=== PATIENT | male | born 1955 | race Caucasian/White ===

== ENCOUNTER 2017-03-26 13:12 | Outpatient (CLI) | payer OTHER ==
--- NOTE | 2017-03-26 19:00 | PET ---
PET CT FROM THE VERTEX OF THE SKULL THROUGH THE MID THIGHS 03/26/17 INDICATION: History of squamous cell carcinoma of the larynx. RADIOPHARMACEUTICAL: 16.4 millicuries F18 FDG IV. TECHNIQUE: PET CT images were obtained from the vertex of the skull through the level of the mid thighs followi ng administration of 16.4 millicuries of F18 FD[address] IV[address] CT images were obtained for attenuation correct ion purposes only. Comparisons are made with the CT of the soft tissues of the neck dated 03/06/[address] of the chest dated 03/15/17. FINDINGS: The biodistribution for the examination appears acceptable. HEAD AND NECK: The right sided polypoid soft tissue mass within the posterior right aspect of the hypopharynx demon strates elevated FDG uptake with a maximum SUV value of 7.3 and maria isabel value of 4.34. There is a right level IIa lymph node that measures 1 cm with a maximum uptake of 2.84, mean value o f 2.42. No additional hypermetabolic lymphadenopathy or soft tissue masses identified. The other mil dly prominently lymph node seen along the right aspect of the neck on the comparison CT examination may be below PET resolution threshold. CHEST: No hypermetabolic pulmonary nodule or pleural effusion is evident. No hypermetabolic lymphadenopathy is evident. ABDOMEN AND PELVIS: No hypermetabolic lymphadenopathy, soft tissue mass or ascites is present. SKIN AND OSSEOUS STRUCTURES: No hypermetabolic skin or osseous lesion is evident. IMPRESSION: Abnormal PET CT. 1. There is a hypermetabolic soft tissue polypoid mass seen within the right posterior aspect o f the hypopharynx likely corresponding to patient's known biopsy proven malignancy. 2. The prominent right level IIa lymph node measuring up to 1 cm on today's PET CT evaluation d oes demonstrate mild hypermetabolic uptake measuring up to 2.84 suspcious for malignant lymphadenopa thy. The additional mildly prominent lymph node seen within the right aspect of neck on the comparis on CT examination may be below PET resolution threshold. 3. No evidence of hypermetabolic metastatic disease of the chest, abdomen, pelvis, and skin and osseous structures. POS: [facility]
== END 2017-03-26 13:13 | disposition home or self-care (01) ==
LOC: PET 13:12
PROVIDERS: ATTEND Internal Medicine Medical Oncology
DX: C32.1 Malignant neoplasm of supraglottis (principal)
CPT/HCPCS: 78815; A9552

== ENCOUNTER 2017-04-15 11:24 | Day surgery (SDC) | payer OTHER ==
[2017-04-15 11:53] VITALS: BP 160/82; TEMP 98
[2017-04-15] MEDS ORDERED: CETUXIMAB IVPB SCH (12:00)
[2017-04-15] MEDS ORDERED: diphenhydrAMINE 50 MG in Sodium Chloride 0.9% 50 ML IVPB SCH (12:00)
== END 2017-04-15 14:45 | disposition home or self-care (01) ==
LOC: ONC/OP 11:24
PROVIDERS: ATTEND Internal Medicine Medical Oncology
DX: Z51.11 Encounter for antineoplastic chemotherapy (principal); C32.1 Malignant neoplasm of supraglottis; E78.5 Hyperlipidemia, unspecified; I12.9 Hypertensive chronic kidney disease with stage 1 through stage 4 chronic kidney disease, or unspecified chronic kidney disease; N18.4 Chronic kidney disease, stage 4 (severe); K21.9 Gastro-esophageal reflux disease without esophagitis; Z79.51 Long term (current) use of inhaled steroids; Z79.899 Other long term (current) drug therapy; Z90.89 Acquired absence of other organs; Z98.890 Other specified postprocedural states; Z87.891 Personal history of nicotine dependence; Z87.19 Personal history of other diseases of the digestive system
CPT/HCPCS: 96367; 96413; 96415; J1200; J7050; J9055

== ENCOUNTER 2017-04-29 11:26 | Day surgery (SDC) | payer OTHER ==
[2017-04-29] MEDS ORDERED: Sodium Chloride 0.9% 20 ML ONE (11:33)
[2017-04-29 11:42] VITALS: BP 144/72; TEMP 98.3
[2017-04-29] MEDS ORDERED: diphenhydrAMINE 25 MG in Sodium Chloride 0.9% 50 ML IVPB SCH (11:45)
[2017-04-29] MEDS ORDERED: CETUXIMAB IVPB SCH (11:45)
== END 2017-04-29 16:07 | disposition home or self-care (01) ==
LOC: ONC/OP 11:26
PROVIDERS: ATTEND Internal Medicine Medical Oncology
DX: Z51.11 Encounter for antineoplastic chemotherapy (principal); C32.1 Malignant neoplasm of supraglottis; E78.5 Hyperlipidemia, unspecified; K21.9 Gastro-esophageal reflux disease without esophagitis; I12.9 Hypertensive chronic kidney disease with stage 1 through stage 4 chronic kidney disease, or unspecified chronic kidney disease; N18.4 Chronic kidney disease, stage 4 (severe); Z79.899 Other long term (current) drug therapy; Z79.51 Long term (current) use of inhaled steroids; Z90.89 Acquired absence of other organs; Z98.890 Other specified postprocedural states; Z87.891 Personal history of nicotine dependence; Z87.19 Personal history of other diseases of the digestive system
CPT/HCPCS: 96367; 96413; A4216; J1200; J7050; J9055

== ENCOUNTER 2017-05-06 11:39 | Day surgery (SDC) | payer OTHER ==
[2017-05-06] MEDS ORDERED: Sodium Chloride 0.9% 20 ML ONE (11:56)
[2017-05-06] MEDS ORDERED: diphenhydrAMINE 25 MG in Sodium Chloride 0.9% 50 ML IVPB SCH (12:00)
[2017-05-06] MEDS ORDERED: ADMIXTURE FEE IVPB SCH (12:00)
[2017-05-06] MEDS ORDERED: CETUXIMAB IVPB SCH (12:00)
[2017-05-06 13:51] VITALS: BP 123/72; TEMP 98.1
== END 2017-05-06 17:47 | disposition home or self-care (01) ==
LOC: ONC/OP 11:39
PROVIDERS: ATTEND Internal Medicine Medical Oncology
DX: Z51.11 Encounter for antineoplastic chemotherapy (principal); C32.1 Malignant neoplasm of supraglottis; E78.5 Hyperlipidemia, unspecified; K21.9 Gastro-esophageal reflux disease without esophagitis; I12.9 Hypertensive chronic kidney disease with stage 1 through stage 4 chronic kidney disease, or unspecified chronic kidney disease; N18.4 Chronic kidney disease, stage 4 (severe); Z79.899 Other long term (current) drug therapy; Z79.51 Long term (current) use of inhaled steroids; Z90.89 Acquired absence of other organs; Z98.890 Other specified postprocedural states; Z87.19 Personal history of other diseases of the digestive system; Z87.891 Personal history of nicotine dependence
CPT/HCPCS: 96361; 96367; 96413; A4216; J1200; J7050; J9055

== ENCOUNTER 2017-05-10 11:08 | Observation (INO) | payer OTHER ==
[2017-05-10] MEDS ORDERED: Lidocaine 1% PF 5 ML VIAL ONE (14:01)
[2017-05-10] MEDS ORDERED: Propofol 200 MG/20 ML VIAL ONE (14:01)
[2017-05-10] MEDS ORDERED: Ondansetron HCl/PF 4 MG/2 ML Vial IVP PRN (14:46)
[2017-05-10] MEDS ORDERED: Lidocaine Viscous Sol 2% 15 ml UD Cup SSP PRN (14:48)
--- NOTE | 2017-05-10 14:53 | OP ---
DATE OF SURGERY: 05/10/2017 PROCEDURE: Esophagogastroduodenoscopy with gastrostomy tube placement. PHYSICIAN: Kit Neil M.D. MEDICATIONS: Given by Anesthesiology Department. PREOPERATIVE DIAGNOSES: 1. Odynophagia/dysphagia. 2. Malnutrition with weight loss. 3. Head and neck cancer, currently with chemoradiation therapy. POSTOPERATIVE DIAGNOSES: 1. Normal esophagus, stomach, and duodenum. 2. Status post placement of 20-Vincentian feeding tube. PROCEDURE IN DETAIL: Written consent was obtained prior to procedure. After adequate sedation, the forward-viewing endoscope was advanced down the stomach under direct vision to the second portion of duodenum. The duodenum appeared normal. Pylorus was patent. The gastric antrum, body, fundus, and cardia all appeared normal. The esophagus appeared normal. Inflammatory changes and hyperemia with inflammatory exudates were noted in the hypopharynx. The stomach was fully insufflated. A site was selected along the anterior abdominal wall with good ballottement and transillumination. The area wa s cleaned with Betadine and anesthetized with 1% Xylocaine. A small incision was made. The trocar w as introduced into the gastric lumen with the guidewire feeding through and grasped with a snare and brought out along with the endoscope. A 20-Vincentian feeding tube was then affixed to the guidewire and was pulled back down to the gastric lumen. The external latch was then firmly secured. The patient did not have any immediate complication, tolerated procedure well. ASSESSMENT: Status post placement of 20-Vincentian feeding tube. PLAN: Will begin feeding later today.
[2017-05-10] MEDS ORDERED: Fentanyl 100 MCG/2 ML VIAL ONE (15:00)
[2017-05-10] MEDS: hydrALAZINE 25 MG TAB PO SCH ×2 (17:30→20:53)
[2017-05-10] MEDS: Morphine 4 MG/ML VIAL IV PRN ×2 (17:30→20:53)
[2017-05-10] MEDS: Sodium Chloride 0.9% 1,000 ML IV SCH (17:30)
[2017-05-10 17:32] VITALS: BMI 25.9
[2017-05-10] MEDS: Carvedilol 6.25 MG TAB PO SCH (20:53)
[2017-05-11] MEDS: Sodium Chloride 0.9% 1,000 ML IV SCH (03:44)
[2017-05-11] MEDS: Morphine 4 MG/ML VIAL IV PRN ×2 (03:45→07:43)
[2017-05-11 04:46] VITALS: TEMP 99
[2017-05-11] MEDS: hydrALAZINE 25 MG TAB PO SCH (07:45)
[2017-05-11] MEDS: Carvedilol 6.25 MG TAB PO SCH (07:45)
[2017-05-11 07:46] VITALS: BP 138/68
[2017-05-11] MEDS ORDERED: Fenofibrate Nanocrystallized 145 MG TAB PO SCH (09:00)
[2017-05-11] MEDS ORDERED: Fluconazole 100 MG TAB PO SCH (09:00)
[2017-05-11] MEDS ORDERED: Multivit, Therapeutic 1 TAB PO SCH (09:00)
--- NOTE | 2017-05-11 14:02 | DIS ---
DATE OF ADMISSION: 05/10/2017 DATE OF DISCHARGE: 05/11/2017 OBSERVATION STAY DIAGNOSIS: Dysphagia with history of head and neck cancer, undergoing treatment. He underwent esoph agogastroduodenoscopy with percutaneous endoscopic gastrostomy tube placement yesterday by Dr. Neil a nd was placed on observation after the procedure and was ready for discharge home today. HOSPITAL COURSE: Mr. Urbano underwent esophagogastroduodenoscopy with PEG placement by Dr. Neil yes ter afternoon of 05/10/2017. Since then, he is tolerating tube feeds well and he has no pain at t he PEG site. PHYSICAL EXAMINATION: LUNGS: Clear to auscultation bilaterally. HEART: Regular rate and rhythm. ABDOMEN: Soft and nontender. The PEG site appears healthy with no erythema or pain. The external b umper was loosened from 3.5 cm to 4.25 cm. This allowed for good movement of the tube and he is read y for discharge home today. DISCHARGE MEDICATIONS: Include the same medicines as prior to admission. He takes multiple vitamin, pantoprazole, hydralazine, potassium, fenofibrate, fluticasone nasal spray, carvedilol, ondansetron as needed, and he has liquid opioid which he has been given prior to admission. He has also had visc ous lidocaine solution which he can continue as needed as well. He will continue the tube feeds and follow up with dietitian at [facility] and he can follow up in [facility] as needed.
== END 2017-05-11 14:40 | disposition home or self-care (01) ==
LOC: SDC 11:08 → ONC 14:38
PROVIDERS: ADMIT Internal Medicine Gastroenterology; ATTEND Internal Medicine Gastroenterology
PROC: 0DH63UZ Insertion of Feeding Device into Stomach, Percutaneous Approach (ICD-10-PCS; principal; 2017-05-10)
DX: R13.10 Dysphagia, unspecified (principal); E46 Unspecified protein-calorie malnutrition; C76.0 Malignant neoplasm of head, face and neck; K21.9 Gastro-esophageal reflux disease without esophagitis; F41.9 Anxiety disorder, unspecified; F32.9 Major depressive disorder, single episode, unspecified; D64.9 Anemia, unspecified; M19.90 Unspecified osteoarthritis, unspecified site; I10 Essential (primary) hypertension; Z68.25 Body mass index [BMI] 25.0-25.9, adult; Z79.51 Long term (current) use of inhaled steroids; Z79.899 Other long term (current) drug therapy; Z90.89 Acquired absence of other organs; Z98.890 Other specified postprocedural states; Z87.891 Personal history of nicotine dependence; Z87.19 Personal history of other diseases of the digestive system
CPT/HCPCS: 96361; 96374; 96376; A4216; G0378; J2001; J2270; J2704; J3010

== ENCOUNTER 2017-05-13 11:06 | Day surgery (SDC) | payer OTHER ==
[2017-05-13] MEDS ORDERED: diphenhydrAMINE 50 MG/ML VIAL IVP SCH (11:30)
[2017-05-13] MEDS ORDERED: CETUXIMAB IVPB SCH (11:30)
== END 2017-05-13 17:29 | disposition home or self-care (01) ==
LOC: ONC/OP 11:06
PROVIDERS: ATTEND Internal Medicine Medical Oncology
DX: Z51.11 Encounter for antineoplastic chemotherapy (principal); C32.1 Malignant neoplasm of supraglottis; E78.5 Hyperlipidemia, unspecified; K21.9 Gastro-esophageal reflux disease without esophagitis; I12.9 Hypertensive chronic kidney disease with stage 1 through stage 4 chronic kidney disease, or unspecified chronic kidney disease; N18.4 Chronic kidney disease, stage 4 (severe); F41.9 Anxiety disorder, unspecified; F32.9 Major depressive disorder, single episode, unspecified; M19.90 Unspecified osteoarthritis, unspecified site; Z79.51 Long term (current) use of inhaled steroids; Z79.899 Other long term (current) drug therapy; Z90.89 Acquired absence of other organs; Z98.890 Other specified postprocedural states; Z87.891 Personal history of nicotine dependence; Z87.19 Personal history of other diseases of the digestive system
CPT/HCPCS: 96375; 96413; J1200; J9055

== ENCOUNTER 2017-05-20 09:47 | Day surgery (SDC) | payer OTHER ==
[2017-05-20] MEDS ORDERED: Sodium Chloride 0.9% 20 ML ONE (10:26)
[2017-05-20] MEDS ORDERED: diphenhydrAMINE 50 MG/ML VIAL IVP SCH (11:15)
[2017-05-20] MEDS ORDERED: CETUXIMAB IVPB SCH (11:15)
[2017-05-20 14:02] VITALS: BP 131/73; TEMP 99.2
== END 2017-05-20 14:25 | disposition home or self-care (01) ==
LOC: ONC/OP 09:47
PROVIDERS: ATTEND Internal Medicine Medical Oncology
DX: Z51.11 Encounter for antineoplastic chemotherapy (principal); C32.1 Malignant neoplasm of supraglottis; I12.9 Hypertensive chronic kidney disease with stage 1 through stage 4 chronic kidney disease, or unspecified chronic kidney disease; N18.4 Chronic kidney disease, stage 4 (severe); K21.9 Gastro-esophageal reflux disease without esophagitis; Z79.51 Long term (current) use of inhaled steroids; Z79.899 Other long term (current) drug therapy; Z90.89 Acquired absence of other organs; Z98.890 Other specified postprocedural states; Z87.891 Personal history of nicotine dependence; Z87.19 Personal history of other diseases of the digestive system
CPT/HCPCS: 96375; 96413; 96415; A4216; J1200; J9055

== ENCOUNTER 2017-05-27 14:08 | Day surgery (SDC) | payer OTHER ==
[2017-05-27] MEDS ORDERED: diphenhydrAMINE 25 MG, Admixture Fee 1 EACH in Sodium Chloride 0.9% 50 ML IVPB SCH (14:15)
[2017-05-27] MEDS ORDERED: CETUXIMAB IVPB SCH (14:30)
[2017-05-27] MEDS ORDERED: ADMIXTURE FEE IVPB SCH (14:30)
[2017-05-27 14:37] VITALS: BP 125/56; TEMP 98.9
== END 2017-05-27 18:52 | disposition home or self-care (01) ==
LOC: ONC/OP 14:08
PROVIDERS: ATTEND Internal Medicine Medical Oncology
DX: Z51.11 Encounter for antineoplastic chemotherapy (principal); C32.1 Malignant neoplasm of supraglottis; E78.5 Hyperlipidemia, unspecified; K21.9 Gastro-esophageal reflux disease without esophagitis; I12.9 Hypertensive chronic kidney disease with stage 1 through stage 4 chronic kidney disease, or unspecified chronic kidney disease; N18.4 Chronic kidney disease, stage 4 (severe); Z98.890 Other specified postprocedural states; Z87.19 Personal history of other diseases of the digestive system
CPT/HCPCS: 96367; 96413; A4216; J1200; J7050; J9055

== ENCOUNTER 2019-04-22 07:55 | Inpatient (IN) | payer OTHER ==
[2019-04-22] MEDS ORDERED: Lidocaine 1% w/Epinephrine 1:100K 20 ML VIAL ONE (11:03)
[2019-04-22] MEDS ORDERED: Fentanyl 250 MCG/5 ML VIAL ONE (11:06)
[2019-04-22] MEDS ORDERED: Midazolam HCl 2 mg/2 ml Vial ONE (11:06)
[2019-04-22] MEDS ORDERED: PROPOFOL 200 MG/20 ML VIAL ONE (11:34)
[2019-04-22] MEDS ORDERED: ePHEDrine 50 MG/ML VIAL ONE (11:34)
[2019-04-22] MEDS ORDERED: Ondansetron PF 4 MG/2 ML Vial ONE (11:34)
[2019-04-22] MEDS ORDERED: Succinylcholine Chloride 20 MG/ML 10 ml SYRINGE FS ONE (11:34)
[2019-04-22] MEDS ORDERED: Glycopyrrolate 0.2 MG/ML 5 ML SYRINGE ONE (11:34)
[2019-04-22] MEDS ORDERED: Lidocaine 1% PF 5 ML VIAL ONE (11:34)
[2019-04-22] MEDS ORDERED: Dexamethasone 20 MG/5 ML VIAL ONE (11:34)
[2019-04-22] MEDS ORDERED: Chlorhexidine Gluconate 15 ML UDCUP SSP ONE (11:43)
[2019-04-22] MEDS ORDERED: Clindamycin/D5W 900 mg/50 ml Premix Bag ONE (11:52)
[2019-04-22] MEDS ORDERED: methylPREDNISolone Acetate 40 mg/ml Vial ONE (13:34)
[2019-04-22] MEDS ORDERED: Morphine Sulfate 2 MG/ML SYRINGE SLOW IVP PRN (14:05)
[2019-04-22] MEDS ORDERED: Promethazine HCl 25 MG/ML VIAL IM PRN (14:05)
[2019-04-22] MEDS ORDERED: Promethazine HCl 25 MG/ML VIAL SLOW IVP PRN (14:05)
[2019-04-22] MEDS ORDERED: Ondansetron HCl/PF 4 MG/2 ML Vial IVP PRN (14:05)
[2019-04-22] MEDS ORDERED: Fentanyl 100 MCG/2 ML VIAL ONE ×2 (14:08→14:32)
[2019-04-22 15:11] VITALS: BMI 25.4
[2019-04-22] MEDS: Sodium Chloride 0.45% 1,000 ML IV SCH (15:26)
[2019-04-22] MEDS ORDERED: Morphine 2 MG/ML SYRINGE SLOW IVP PRN (15:32)
[2019-04-22] MEDS ORDERED: Ondansetron PF 4 MG/2 ML Vial SLOW IVP PRN (15:33)
[2019-04-22] MEDS ORDERED: ceFAZolin 1 GM/D5W 1 GM in Premix Bag 1 BAG IVPB SCH (16:00)
[2019-04-22] MEDS: Clindamycin 150 MG CAP PO SCH (16:08)
--- NOTE | 2019-04-22 17:01 | EKG ---
Test Reason : PREOP Blood Pressure : / mmHG Vent. Rate : 050 BPM Atrial Rate : 050 BPM P-R Int : 168 ms QRS Dur : 114 ms QT Int : 460 ms P-R-T Axes : 059 -22 043 degrees QTc Int : 419 ms Sinus bradycardia Incomplete right bundle branch block Borderline ECG Confirmed by DAYANARA CARTY ([id number]) on 04/22/2019 5:00:59 PM Referred By: ROBERTO Confirmed By:DAYANARA CARTY
[2019-04-22] MEDS: Hydrocodone-Acetamin 15 ML UDCUP PO PRN (18:13)
[2019-04-22] MEDS: ceFAZolin 1 GM/D5W 1 GM in Premix Bag 1 BAG IVPB SCH (19:30)
[2019-04-22] MEDS: Amlodipine 5 MG TAB PO SCH (20:09)
[2019-04-22] MEDS: Carvedilol 25 MG TAB PO SCH (20:09)
[2019-04-22] MEDS: hydrALAZINE 25 MG TAB PO SCH (20:10)
[2019-04-22] MEDS: Fluticasone Propionate Nasal Spray 16 gm Bottle NASAL PRN (20:33)
[2019-04-23] MEDS: Clindamycin 150 MG CAP PO SCH ×4 (00:02→23:32)
[2019-04-23] MEDS: Sodium Chloride 0.45% 1,000 ML IV SCH ×3 (00:14→20:15)
[2019-04-23] MEDS: ceFAZolin 1 GM/D5W 1 GM in Premix Bag 1 BAG IVPB SCH ×3 (04:25→20:10)
[2019-04-23] MEDS: Levothyroxine Sodium 50 MCG TAB PO SCH (05:05)
[2019-04-23] MEDS: Hydrocodone-Acetamin 15 ML UDCUP PO PRN ×5 (05:06→20:12)
[2019-04-23] MEDS: hydrALAZINE 25 MG TAB PO SCH ×2 (08:48→20:11)
[2019-04-23] MEDS: Carvedilol 25 MG TAB PO SCH ×2 (08:49→20:11)
[2019-04-23] MEDS: Amlodipine 5 MG TAB PO SCH (20:12)
[2019-04-23] MEDS: Fluticasone Propionate Nasal Spray 16 gm Bottle NASAL PRN (20:50)
[2019-04-24] MEDS: Hydrocodone-Acetamin 15 ML UDCUP PO PRN ×3 (00:06→10:38)
[2019-04-24] MEDS: Levothyroxine Sodium 50 MCG TAB PO SCH (04:44)
[2019-04-24] MEDS: ceFAZolin 1 GM/D5W 1 GM in Premix Bag 1 BAG IVPB SCH ×2 (04:44→11:15)
[2019-04-24] MEDS: Sodium Chloride 0.45% 1,000 ML IV SCH (05:07)
[2019-04-24 08:23] VITALS: TEMP 98.5
[2019-04-24] MEDS: Carvedilol 25 MG TAB PO SCH (09:12)
[2019-04-24] MEDS: Clindamycin 150 MG CAP PO SCH (09:12)
[2019-04-24] MEDS: hydrALAZINE 25 MG TAB PO SCH (09:13)
[2019-04-24 09:15] VITALS: BP 116/75
--- NOTE | 2019-04-24 14:31 | OP ---
DATE OF PROCEDURE: 04/22/2019 PREOPERATIVE DIAGNOSES: 1. 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 2. Dysphagia. 3. History of malignant neoplasm, supraglottis, and history of radiation. POSTOPERATIVE DIAGNOSES: 1. 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 2. Dysphagia. 3. History of malignant neoplasm, supraglottis, and history of radiation. PROCEDURES PERFORMED: 1. Left modified radical neck dissection levels 1 through 5. 2. Wide local excision of floor of mouth cancer with local regional mucosal advancement flap (3 x 3 cm square). ESTIMATED BLOOD LOSS: 100 mL. COMPLICATIONS: None. ANESTHESIA: GETA. OFFICE SUPPORT: Dr. Thomas Montalvo. DESCRIPTION OF PROCEDURE: The patient was taken to operating room, placed supine on the table. General endotracheal anesthesia was obtained via nasotracheal intubation. Following this, the oral cavity was widened with dental retractors and the left lower mouth lesion was visualized. It was approximately 1.5 cm in diameter. It was located immediately adjacent to the mandible on the left floor of mouth. A wide cuff was taken around this area approximately 1 cm with a 15 blade, scissors and pickups. The entire lesion was excised along with some underlying sublingual gland. Peripheral margins and deep margins were sent for pathological analysis and were noted to be free of any tumor. The wound then had an advancement flap formed from mucosa adjacent to the ventral surface of the tongue. Total area of advancement was approximately 3 x 3 cm. The mucosal edges were then reapproximated using chromic gut stitches. Following this, the patient was prepped and draped for standard surgical fashion of the neck. Shoulder roll was placed, and the neck was gently extended exposing the left neck. Following this, an apron type incision was made extending down the sternocleidomastoid and then horizontally across to the midline approximately 2 cm above the clavicle. An incision was carried through skin, subcutaneous tissue, and the platysmal layer. Subplatysmal flaps were elevated superiorly and inferiorly. Following this, the flaps were retracted and level 1 dissection was performed first. Dissection was carried down to the digastric muscle and submandibular gland. The level 1 contents were identified and were retracted inferiorly. The marginal mandibular nerve on this left side was identified and was elevated superiorly. The facial artery and vein were suture ligated at the periosteum of the mandible. The gland was then retracted inferiorly, removing all of the floor of mouth from deep structures and the left submandibular gland. The lingual nerve was identified and its postganglionic fibers were suture ligated immediately adjacent to the nerve. The nerve was then retracted superiorly. The hypoglossal nerve was identified, and the submandibular duct was then suture ligated adjacent to the floor of mouth. Following this, the lymphatic pad of level 1A was then removed off the mylohyoid muscle and was removed along with the specimen. Following this, levels 2 through 5 neck dissection was performed. The digastric muscle was retracted superiorly, and fascia of the sternocleidomastoid muscle was unwrapped anteriorly. At the inferior level of the clavicles, dissection was carried down to the deep neck musculature and the lymphatic pedicle was suture ligated from the internal jugular vein extending into the level 5. The spinal accessory nerve was identified and was noted to be coursing lateral to the internal jugular vein. Level 2A contents were then passed underneath the spinal accessory nerve, and the spinal accessory nerve and sternocleidomastoid were retracted. Levels 2, 3, 4, and 5 were then resected as dissection was carried all the way around the sternocleidomastoid fascia and down to the trapezius and deep neck musculature. Seeing our plane above the muscle fascia, the level 2 through 5 contents were then dissected and rolled medially and dissected off the internal jugular vein and the carotid artery. Small branching vessels off the internal jugular vein were then suture ligated. The level 2 through 5 contents were removed and were labeled and sent for permanent pathological analysis with level 1. Following this, the wound was irrigated. Two drains were placed, and the platysmal layer was closed using 2-0 Vicryl stitches and then subcuticular stitches were placed using 3-0 Vicryl stitches. The skin was stapled. The patient was then taken to recovery room in stable condition. Job ID: [id number]
== END 2019-04-24 14:00 | disposition home or self-care (01) | DRG 129 ==
LOC: SURG A 07:55 → CCU 14:10 → SURG A 04-23 11:35
PROVIDERS: ADMIT Otolaryngology Plastic Surgery within the Head & Neck; ATTEND Otolaryngology Plastic Surgery within the Head & Neck
PROC: 07T20ZZ Resection of Left Neck Lymphatic, Open Approach (ICD-10-PCS; principal; 2019-04-22)
PROC: 0CBF0ZZ Excision of Left Sublingual Gland, Open Approach (ICD-10-PCS; 2019-04-22)
PROC: 0CB4XZZ Excision of Buccal Mucosa, External Approach (ICD-10-PCS; 2019-04-22)
PROC: 0CX Mouth and Throat, Transfer (ICD-10-PCS; 2019-04-22)
DX: C04.9 Malignant neoplasm of floor of mouth, unspecified (principal); N18.4 Chronic kidney disease, stage 4 (severe); R13.10 Dysphagia, unspecified; Z90.49 Acquired absence of other specified parts of digestive tract; E03.9 Hypothyroidism, unspecified; Z87.891 Personal history of nicotine dependence; K21.9 Gastro-esophageal reflux disease without esophagitis; E78.5 Hyperlipidemia, unspecified; I12.9 Hypertensive chronic kidney disease with stage 1 through stage 4 chronic kidney disease, or unspecified chronic kidney disease
CPT/HCPCS: 88305; 88307; 88331; 93005; 93010; J0131; J0690; J1030; J2250; J3010; J3490

== ENCOUNTER 2022-02-19 13:41 | Outpatient (CLI) | payer MEDICARE ==
[2022-02-19 14:35] LABS: #Basophils 0.1 10x3/uL (0.0-0.2); #Eosinphils 0.1 10x3/uL (0.0-0.5); #Monocytes 0.6 10x3/uL (0.0-1.1); #Neutrophils 3.6 10x3/uL (1.5-8.4); %Basophils 1.4 % (0.0-2.0); %Eosinophils 1.7 % (0.0-6.0); %Lymphocytes 15.5 % (18.0-47.0); %Neutrophils 70.2 % (40.0-75.0); Hemoglobin 11.7 g/dL (13.5-17.5); Mean Corpuscular HGB CONC 33.1 g/dL (32.0-36.0); Mean Corpuscular Hemoglobin 29.9 pg (27.0-33.0); Mean Corpuscular Volume 90.3 fl (81.2-95.1); Mean Platelet Volume 9.1 fl (7.4-10.4); Platelet Count 305 10x3/uL (150-450); RBC Distribution Width 13.1 % (11.5-14.5); Red Blood Cell (RBC) Count 3.91 10x6/uL (4.32-5.72); White Blood Cell (WBC) Count 5.2 10x3/uL (3.5-10.5)
[2022-02-19 14:48] LABS: Anion Gap 15 mmol/L (10-20); BUN (Urea Nitrogen) 15 mg/dL (8.4-25.7); Calc. Creatinine Clearance 0 mL/min (70-130); Calcium 8.6 mg/dL (7.8-10.44); Carbon Dioxide 23 mmol/L (23-31); Chloride 108 mmol/L (98-107); Estimated GFR 64; Glucose 92 mg/dL (80-115); Sodium 142 mmol/L (136-145)
== END 2022-02-19 13:42 | disposition home or self-care (01) ==
LOC: LABBT 13:41
PROVIDERS: ATTEND Orthopaedic Surgery
DX: Z01.818 Encounter for other preprocedural examination (principal); M19.021 Primary osteoarthritis, right elbow; Z20.822 Contact with and (suspected) exposure to COVID-19
CPT/HCPCS: 80048; 85025; 87811; 93005; 93010

== ENCOUNTER 2022-02-22 07:26 | Day surgery (SDC) | payer MEDICARE ==
[2022-02-20 14:23] VITALS: BMI 27.6
[2022-02-22] MEDS ORDERED: Sodium Chloride 0.9% 100 ML ONE (07:38)
[2022-02-22] MEDS ORDERED: CEFAZOLIN 2 GM VIAL ONE (07:38)
[2022-02-22] MEDS ORDERED: Midazolam HCl 2 mg/2 ml Vial ONE ×3 (08:22→10:29)
[2022-02-22] MEDS ORDERED: Fentanyl 100 MCG/2 ML VIAL ONE ×3 (08:22→12:26)
[2022-02-22] MEDS ORDERED: fentaNYL Citrate/PF 100 MCG/2 ML SYRINGE ONE (10:07)
[2022-02-22] MEDS ORDERED: SUGAMMADEX SODIUM 200 MG/2 ML VIAL ONE (11:44)
[2022-02-22] MEDS ORDERED: HYDROcodone/Acetaminophen 5/325 mg Tablet ONE (13:26)
== END 2022-02-22 13:56 | disposition home or self-care (01) ==
LOC: SDC 07:26
PROVIDERS: ATTEND Orthopaedic Surgery
PROC: 0RBL4ZZ Excision of Right Elbow Joint, Percutaneous Endoscopic Approach (ICD-10-PCS; principal; 2022-02-22)
DX: M24.521 Contracture, right elbow (principal); M19.021 Primary osteoarthritis, right elbow; I12.9 Hypertensive chronic kidney disease with stage 1 through stage 4 chronic kidney disease, or unspecified chronic kidney disease; N18.9 Chronic kidney disease, unspecified; E78.5 Hyperlipidemia, unspecified; K21.9 Gastro-esophageal reflux disease without esophagitis; Z87.891 Personal history of nicotine dependence; Z79.890 Hormone replacement therapy; Z79.899 Other long term (current) drug therapy
CPT/HCPCS: J0690; J2250; J3010; J3490

== ENCOUNTER 2022-04-05 12:21 | Outpatient (CLI) | payer MEDICARE, OTHER | END 2022-04-05 12:22 | disposition home or self-care (01) | LOC: BICCT 12:21 | PROVIDERS: ATTEND Internal Medicine Medical Oncology | DX: Z12.2 Encounter for screening for malignant neoplasm of respiratory organs (principal); C32.1 Malignant neoplasm of supraglottis; F17.210 Nicotine dependence, cigarettes, uncomplicated; R91.1 Solitary pulmonary nodule | CPT/HCPCS: 71271 ==

== ENCOUNTER 2023-04-11 14:43 | Outpatient (CLI) | payer MEDICARE | END 2023-04-11 14:44 | disposition home or self-care (01) | LOC: BICCT 14:43 | PROVIDERS: ATTEND Internal Medicine Medical Oncology | DX: Z12.2 Encounter for screening for malignant neoplasm of respiratory organs (principal); C32.1 Malignant neoplasm of supraglottis; R59.0 Localized enlarged lymph nodes; Z87.891 Personal history of nicotine dependence | CPT/HCPCS: 71271 ==

== ENCOUNTER 2024-04-06 13:50 | Outpatient (CLI) | payer MEDICARE ==
[~2024-04-06 13:50] MED LIST: Iopamidol 370 76% 100 ML VIAL ONE
== END 2024-04-06 13:51 | disposition home or self-care (01) ==
LOC: BICCT 13:50
PROVIDERS: ATTEND Internal Medicine
DX: Z12.2 Encounter for screening for malignant neoplasm of respiratory organs (principal); Z87.891 Personal history of nicotine dependence; R59.0 Localized enlarged lymph nodes; Z85.89 Personal history of malignant neoplasm of other organs and systems
CPT/HCPCS: 71271; Q9967